=== PATIENT | female | born 1975 | race Caucasian/White ===

== ENCOUNTER 2016-10-06 08:59 | Emergency (ER) | payer OTHER ==
[2016-10-06 10:47] LABS: HEMOGLOBIN 13.3 gm/dl (12.3-15.3); RED BLOOD COUNT 4.27 M/UL (4.00-5.10); WHITE BLOOD COUNT 6.3 K/UL (4.5-11.0)
[2016-10-06 11:03] LABS: BUN/CREATININE RATIO 27 (0-10)
== END 2016-10-06 11:44 | disposition home or self-care (01) ==
LOC: ER1 08:59
PROVIDERS: Emergency Medicine
DX: R10.9 Unspecified abdominal pain (principal); R11.0 Nausea; E11.9 Type 2 diabetes mellitus without complications; I10 Essential (primary) hypertension
CPT/HCPCS: 36415; 80053; 81001; 82150; 83690; 85025; 96361; 96374; 96375; 99284; J1885; J2270; J2405; J7030

== ENCOUNTER 2020-11-13 10:42 | Inpatient (IN) | payer OTHER ==
[~2020-11-13] VITALS: Ht 162.6 cm; Wt 99.8 kg
[~2020-11-13 10:42] MED LIST: BENTYL 20MG TAB20 MG PO; ZOFRAN ODT 4 MG4 MG PO
[2020-11-13 11:39] LABS: HEMOGLOBIN 13.5 gm/dl (12.3-15.3); RED BLOOD COUNT 4.37 M/UL (4.00-5.10); WHITE BLOOD COUNT 6.6 K/UL (4.5-11.0)
[2020-11-13 12:05] LABS: BUN/CREATININE RATIO 10 (0-10)
[2020-11-13] MEDS ORDERED: METFORMIN HCL500 MG PO ×2 (18:32→18:33)
[2020-11-13] MEDS ORDERED: ZESTRIL20 MG PO (18:33)
[2020-11-13] MEDS ORDERED: LOVASTATIN20 MG PO (18:33)
[2020-11-13] MEDS ORDERED: MAGNESIUM250 M1 PO (18:34)
[2020-11-13] MEDS ORDERED: PROTONIX 40 MG40 M1 PO (18:34)
[2020-11-15 06:32] LABS: BUN/CREATININE RATIO 24 (0-10)
[2020-11-15 06:59] LABS: HEMOGLOBIN 12.8 gm/dl (12.3-15.3); RED BLOOD COUNT 4.15 M/UL (4.00-5.10)
[2020-11-15 07:02] LABS: WHITE BLOOD COUNT 10.3 K/UL (4.5-11.0)
[2020-11-16 10:41] LABS: HEMOGLOBIN 13.3 gm/dl (12.3-15.3); RED BLOOD COUNT 4.31 M/UL (4.00-5.10); WHITE BLOOD COUNT 11.5 K/UL (4.5-11.0)
[2020-11-16 11:03] LABS: BUN/CREATININE RATIO 30 (0-10)
[2020-11-17 09:57] LABS: HEMOGLOBIN 13.1 gm/dl (12.3-15.3); RED BLOOD COUNT 4.29 M/UL (4.00-5.10)
[2020-11-17 10:27] LABS: BUN/CREATININE RATIO 24 (0-10)
[2020-11-17] MEDS ORDERED: DECADRON6 MG PO (15:10)
[2020-11-17] MEDS ORDERED: PEPCID20 MG PO (15:10)
== END 2020-11-17 16:42 | disposition home or self-care (01) | DRG 177 ==
LOC: ER1 10:42 → CDU 13:21 → MED SURG 4 13:21
PROVIDERS: Internal Medicine; Student in an Organized Health Care Education/Training Program; ADMIT Internal Medicine
PROC: XW033E5 Introduction of Remdesivir Anti-infective into Peripheral Vein, Percutaneous Approach, New Technology Group 5 (ICD-10-PCS; principal; 2020-11-13)
PROC: XW033H5 Introduction of Tocilizumab into Peripheral Vein, Percutaneous Approach, New Technology Group 5 (ICD-10-PCS; 2020-11-13)
PROC: 8E0ZXY6 Isolation (ICD-10-PCS; 2020-11-13)
DX: U07.1 COVID-19 (principal); J12.82 Pneumonia due to coronavirus disease 2019; J96.01 Acute respiratory failure with hypoxia; E11.9 Type 2 diabetes mellitus without complications; I10 Essential (primary) hypertension; E66.01 Morbid (severe) obesity due to excess calories; Z68.37 Body mass index [BMI] 37.0-37.9, adult; Z88.1 Allergy status to other antibiotic agents; Z79.84 Long term (current) use of oral hypoglycemic drugs; Z79.899 Other long term (current) drug therapy
CPT/HCPCS: 36415; 36600; 71045; 80053; 82550; 82553; 82728; 82803; 82962; 83605; 83615; 83874; 84484; 84702; 84703; 85025; 85379; 86140; 99285; J0696; J1100; J1650; J2405; J7030; U0002